=== PATIENT | female | born 1955 | race Caucasian/White ===

== ENCOUNTER 2017-10-19 08:26 | Inpatient (IN) | payer OTHER ==
[~2017-10-19] VITALS: Ht 170.2 cm; Wt 86.2 kg
--- OUTSIDE RECORDS SUMMARY | ~2017-10-19 | XMS | Clinical Summary ---
Demographics + + + | Address | [address] | | | [place] [address] | + + + | Home Phone | | + + + | Preferred Language | Unknown | + + + | Marital Status | | + + + | Jewish Affiliation | 1013 | + + + | Race | Unknown | + + + | Ethnic Group | Unknown | + + + Author + + + | Author | [facility] | | | and [place] | + + + | Organization | [facility] | | | and [place] | + + + | Address | Unknown | + + + | Phone | Unavailable | + + + Support + + +---------+ + | Name | Relationship | Address | Phone | + + +---------+ + | MARTHA THOMAS | ECON | Unknown | | + + +---------+ + Care Team Providers + +------+ + | Care Clipper Counters Name | Role | Phone | + +------+ + PP | Unavailable | + +------+ + Allergies Not on File Current Medications Not on file Active Problems Not on file Social History + +-------+ +--------+------+ | Tobacco Use | Types | Packs/Day | Years | Date | | | | | Used | | + +-------+ +--------+------+ | Never Assessed | | | | | + +-------+ +--------+------+ + + + | Sex Assigned at | Date Recorded | | | | + + + | Not on file | | + + + Plan of Treatment + + + + + | Health Maintenance | Due Date | Last Done | Comments | + + + + + | Vaccine: | | | | | Dtap/Tdap/Td (1 - | 3 | | | | Tdap) | | | | + + + + + | Cervical Cancer | | | | | Screening (Pap) | 4 | | | + + + + + | Vaccine: Zoster (1 | | | | | of 2) | 4 | | | + + + + + | Vaccine: Influenza | | | | | (#1) | 8 | | | + + + + + Results Not on filefrom Last 3 Months"
[~2017-10-19 08:26] MED LIST: ALDACTONE25 MG PO; ASPIRIN EC325 MG PO; B COMPLEX1 EACH PO; FISH OIL 1,0001 EAC3 PO; LEVOTHYROXINE100 MCG PO; MAXALT MLT10 MG PO; METFORMIN HCL1000 MG PO; MINOCYCLINE HC100 MG PO; NORCO 5-325 TA1 EACH PO; STRATTERA80 MG PO; VERAPAMIL ER P100 MG PO; VITAMIN D34000 UNIT PO; VITAMIN D5000 UNIT PO; WELLBUTRIN XL300 MG PO
[2017-10-20] MEDS ORDERED: PIROXICAM20 MG PO (14:26)
--- NOTE | 2017-10-20 14:52 | NUR ---
PATIENT HERE TODAY FOR PREADMISSION APPOINTMENT. SHE IS RESCHEDULED FOR A LEFT TOTAL KNEE ARTHROPLASTY ON 10/27/17. SHE WAS PREVIOUSLY SCHEDULED FOR THE SAME SURGERY AND HAD TO RESCHEDULE. SHE HAS ALREADY ATTENTDED THE PREOP PHYSICAL THERAPY CLASS. SHE HAS TWO STEPS INTO THE HOME AND NO STEPS INSIDE THE HOME. SHE HAS A CLAW FOOT BATH TUB IN HER HOME SO SHE WILL BE USING THE WALK IN SHOWER IN HER RENTAL HOUSE THAT IS NEXT TO HER HOME. SHE WILL OBTAIN A FRONT WHEELED WALKER AND SHOWER BENCH BEFORE SURGERY. HER ELI WILL BE HERE TO TRANSPORT HER HOME AND TO APPOINTMENTS. SHE WOULD LIKE PHYSICAL THERAPY SET UP WITH [facility]. THIS INFORMATION WILL BE SENT TO DR MATIAS OFFICE AND OK PLANNING FOR FURTHER FOLLOW UP.
--- NOTE | 2017-10-27 12:02 | NUR ---
10/27/17 1202 Araceli Brian 1145 PT ARRIVED IN PACU SLEEPY. BLOOD SUGAR ON ARRIVAL 119. UNABLE TO ASSESS SPINAL LEVEL AT THIS TIME R/T PT TO SLEEPY. 1200 OXYGEN DECREASED TO 6L VIA MASK WITH SATS 98%. SPINAL LEVEL AT L-1. PT ABLE TO WIGGLE TOES.
--- NOTE | 2017-10-27 12:40 | NUR ---
PATIENT ARRIVED TO FLOOR FROM PACU. PATIENT DROWSY, VITAL SIGNS STABLE. CONTINUOUS PULSE OXIMETERY IN PLACE. INCISION SITE IS CLEAN, DRY, AND INTACT. STRONG PEDAL PULSES BILATERALLY. LUNG SOUNDS CLEAR, PATIENT ON 2L NASAL CANNULA. SCD'S IN PLACE. IN ROOM WITH PATIENT, CALL LIGHT WITHIN REACH.
--- NOTE | 2017-10-27 13:40 | NUR ---
VITAL SIGNS REMAIN STABLE, CONTINUOUS PULSE OXIMETERY IN PLACE. PATIENT ON 2L NC. LACTATED RINGERS CURRENTLY INFUSING AT 125 MLS/HR. PATIENT DENIES PAIN. FRESH WATER PLACED AT THE BEDSIDE. CALL LIGHT WITHIN REACH.
--- NOTE | 2017-10-27 14:23 | NUR ---
PT IN M/S RM 115 FOLLOWING SURGERY. PT TRYING TO WAKE UP, ELI IN RM. ELI HAS SOME CONFUSION-PT HAD ASKED ME TO CHECK IN ON HIM. HE SEEMED AT EASE AND RELAXED. EXTENDED A BLESSING, WILL FOLLOW NEEDED
--- NOTE | 2017-10-27 14:33 | NUR ---
MET WITH PT BEFORE SURGERY. SHE IS RATHER ANXIOUS. GAVE WORDS OF ENCOURAGEMENT AND PT REQUESTED PRAYER. PT ASKED TO KEEP AN EYE ON HER -HE SEEMS TO GET CONFUSED EASILY. I LET HER KNOW WE WILL DO THAT FOR HER. WILL FOLLOW NEEDED
--- NOTE | 2017-10-27 14:40 | NUR ---
VITAL SIGNS STABLE. PATIENT ON CONTINUOUS PULSE OXIMETERY AND 2L NC. LR INFUSING AT 125 MLS/HR. PATIENT DENIES PAIN. PHYSICAL THERAPY IN ROOM WITH PATIENT. CALL LIGHT WITHIN REACH.
--- NOTE | 2017-10-27 16:14 | NUR ---
PATIENT IS STILL VERY DROWSY, BUT IS A/O X4. PATIENT ON 2L NC, CONTINUOUS PULSE OXIMETERY IN PLACE, CURRENTLY SATTING 93%. WHILE WORKING WITH PHYSICAL THERAPY, PATIENT HAD 300 ML EMESIS. COLD CLOTH ON FOREHEAD. SCD'S IN PLACE. SURGICAL INCISION IS CLEAN DRY AND INTACT. IN ROOM WITH PATIENT, CALL LIGHT WITHIN REACH. PATIENT DENIES PAIN.
--- NOTE | 2017-10-27 17:39 | NUR ---
PATIENT COMPLAINING OF INCREASED NAUSEA, HAD 300 MLS OF EMESIS. 4 MG ZOFRAN PRN ADMINISTERED. CALL LIGHT WITHIN REACH.
--- NOTE | 2017-10-27 17:47 | NUR ---
PATIENT ASKED FOR HELP TO GO BATHROOM. PATIENT SITING UP IN BED. PATIENT FEEL DIZZY. WASTE WATER OPERATOR ASKED FOR HELP. RN NOTIFIED. PATIENT THROW UP. PATIENT SITING UP IN BASE COMODE. PULL UP AND PAD PROVIDED. LINENS CHANGED. GOWN CHANGED. PATIENT BACK TO BED. VITALS AND I&O DONE. CALL LIGHT WITHIN REACH. NO MORE NEEDS AT THIS TIME.
--- NOTE | 2017-10-27 19:00 | NUR ---
PATEINT ARRIVED TO FLOOR AT 1240. VITAL SIGNS HAVE REMAINED STABLE. INCISION SITE IS COVERED, NO SIGNS OF SHADOWING OR DRAINAGE. PATIENT IS A/O X4, BUT REMAINS VERY DROWSY. PATIENT HAS HAD MULTIPLE EPISODES OF EMESIS, PRN ZOFRAN ADMINISTERED. PATIENT HAD DENIED PAIN SINCE ARRIVAL TO UNIT.
--- NOTE | 2017-10-27 20:06 | NUR ---
RECEIVED REPORT FROM DAY SHIFT RN. PATIENT IS HAVING A BOUT OF EMESIS. PATIENT GIVEN PRN NAUSEA MEDICATION PER ORDER. NO FURTHER NEEDS NOTED. CALL LIGHT IN REACH. AT THE BEDSIDE.
--- NOTE | 2017-10-27 21:30 | NUR ---
PATIENT ASSESMENT COMPLETED. PATIENT GIVEN JELLO. PATIENTS VITALS TAKEN AND RECORDED. PATIENTS EVENING MEDCIATIONS GIVEN PER ORDER. PATIENT DENIES ANY PAIN AT THIS TIME. PATIENTS DRESSING IS C/D/I, NO DRAINAGE NOTED. PATIENT TITRATED TO 1L VIA NC. PATIENT REMAINS ON A PULSE OX. PATIENT HAS ICE APPLIED TO LEFT KNEE. PATIENT DENIES ANY NAUSEA. PATIENT IS RESTING IN BED AND DENIES ANY FURTHER NEEDS. CALL LIGHT IN REACH.
--- NOTE | 2017-10-27 23:22 | NUR ---
PATIENT IS RESTING IN BED WITH EYES CLOSED. PULSE OX READINGS ARE WNL. PATIENTS CALL LIGHT IS WITHIN REACH.
--- NOTE | 2017-10-28 00:04 | NUR ---
PATIENT ASSISTED TO THE BSC A 1-2PA W/FWW. PATIENT DID NOT TOLERATE ACTIVITY. PATIENT BECAME DIZZY AND NAUSEAOUS. PATIENT WAS ABLE TO VOID. PATIENT IS BACK IN BED RESTING. SCDS IN PLACE. PATIENT GIVEN PRN NAUSEA MEDICATION. PATIENT REMAINS ON 1L VIA NC. PULSE OX IN PLACE. NO FURTHER NEEDS NOTED. CALL LIGHT IN REACH.
--- NOTE | 2017-10-28 01:20 | NUR ---
PATIENT ASSESMENT COMPLETED. PATIENTS VITALS TAKEN AND RECORDED. PATIENTS SCHEDULED MEDICATIONS GIVEN PER ORDER. PATIENT DENIES ANY PAIN OR NAUSEA. PATIENT REMAINS ON 1L VIA NC. PULSE OX IN PLACE AND READINGS ARE WNL. DRESSING ARE WNL. PATIENT DENIES ANY FURTHER NEEDS. CALL LIGHT IN REACH.
--- NOTE | 2017-10-28 03:19 | NUR ---
PATIENT IS RESTING IN BED WITH EYES CLSOED. PULSE OX READINGS ARE WNL. PATIENT REMAINS ON 1L VIA NC. CALL LIGHT IN REACH.
--- NOTE | 2017-10-28 04:46 | NUR ---
PATIENT RESTED WELL THROUGHOUT THE SHIFT. PATIENT REMAINS ON A CLEAR DIET AND IT CAN DE ADVANCED TOELRATED TO ADA. PATIENT IS ON 1L VIA NC. PULSE OX IN PLACE. PATIENT HAS AND ORDER TO WORK WITH PT. PATIENT HAS SCDS IN PLACE. PATIENTS DRESSIN IVONE LEFT KNEE IS C/D/I, NO DRAINAGE NOTED. PATIENT RECEIVED X2 PRN MEDICATIONS FOR NAUSEA. PATIENT DENIED ANY PAIN. PATIENT REMAINED DROWWSY BUT WAS EASY TO AWAKEN. PATIENT IS AAOX3 AND USES HER CALL LIGHT APPROPRIATELY. IV INFUSING. ICE Q 1-2 HRS FOR 20 MINS.
--- NOTE | 2017-10-28 05:27 | NUR ---
PATIENTS VITALS TAKEN AND RECORDED. PATIENT ASSISTED TO THE RESTROOM A 1PA W/FWW. PATIENT TOELRATED AMBULATION WELL. PATIENT DENIED BEING DIZZY OR NAUSEOUS WITH AMBULATION. PATIENT WAS ABLE TO VOID. PATIENT IS BACK IN BED RESTING. ICE IN PLACE. SCDS IN PLACE. DRESSSING IS C/D/I, NO DRAINAGE NOTED. PATIENT GIVEN JELLO. PATIENT RATES PAIN AT A 5/10. PRN PAIN MEDICATION GIVEN PER ORDER. PATIENT DENIES ANY FURTHER NEEDS. CALL LIGHT IN REACH.
--- NOTE | 2017-10-28 07:18 | NUR ---
SHIFT REPORT RECEIVED FROM SOUND CUTTER RN AT BEDSIDE. PATEINT AWAKE, LAYING IN BED. RESPIRATIONS EVEN AND UNLABORED. LR INFUSING AT 125 MLS/HR, IV SITE WNL. INCISION SITE COVERED, NO DRAINAGE NOTED. PATIENT ON CONTINOUS PULSE OXIMETERY. PATIENT DENIES PAIN, CALL LIGHT WITHIN REACH.
--- NOTE | 2017-10-28 08:20 | NUR ---
MORNING ASSESSMENT AND ROUTINE MEDICATIONS ADMINISTERED. PATEINT ON ROOM AIR, CONTINUOUS PULSE OXIMETERY IN PLACE. INCISION SITE IS COVERED, NO DRAINAGE NOTED. MORNING GLUCOSE RRESULT OF 135, NO INSULIN ADMINISTERD PER SLIDING SCALE ORDERS. CALL LIGHT WITHIN REACH.
--- NOTE | 2017-10-28 08:27 | NUR ---
THIS WIG SALES CONSULTANT ASSISTED PATIENT UP INTO BEDSIDE RECLINER. PATIENT DRESSED IN PANTS FROM HOME. THIS WIG SALES CONSULTANT ASSISTED PATIENT TO PUT HAIR IN BUN. PATIENT STATED SHE ALREADY WASHED HANDS AND FACE. LINENS CHANGED. CALL LIGHT IN REACH. NO OTHER NEEDS AT THIS TIME.
--- NOTE | 2017-10-28 08:41 | OR ---
[facility] [address], [place] [address] Signed DATE OF OPERATION: 10/27/2017 SURGEON: Gucci Arnold MD PREOPERATIVE DIAGNOSES: 1. End-stage osteoarthritis, left knee. 2. Ochronosis. PROCEDURE: Left total knee arthroplasty. ANESTHESIA: Spinal with sedation. SPECIMENS AND COMPLICATIONS: There were no specimens or complications. TOURNIQUET TIME: Was about 80 minutes. IMPLANTS: Attune total knee size 6 narrow PS femur, a size 5 tibial tray, with a 7 mm size 6 PS poly insert and a 35 mm all-poly patellar button. WHAT WAS DONE: The patient was taken to the operating room. After anesthesia was induced, the patient sedated, left lower extremity was positioned, prepped and draped in the routine sterile fashion. The leg was exsanguinated with an Esmarch bandage. Pneumatic tourniquet was inflated to 300 mmHg of pressure on the upper thigh. The knee was approached through a straight anterior approach. Skin was divided sharply. We then created a small medial flap and did an anteromedial arthrotomy. The patella was the ER everted. We measured the patella which was only 20 mm. We removed about 9 mm off the posterior aspect of patella placed 35 mm lollipop on the back of the patella and drilled holes for a 35 mm patellar button. We then snap-fit the trial and found that we had reconstituted patellar height of about 23 mm. We then slid the patella into the lateral recess. Using the [employer] navigation system, we then digitized the end of the femur per protocol and resected the distal femur in neutral varus valgus about 3 degrees of flexion removing about 11 mm off the most worn side. The femoral wafers were then removed. We then transitioned the Rajan navigation system to the proximal tibia and again following the protocol digitized the proximal tibia. Proximal tibia was then resected Electronically Signed By: GUCCI ARNOLD MD 10/28/17 0841 PATIENT NAME: LAZARO LANZA OPERATIVE REPORT DATE OF : 51 REPORT #: [id number] PHYSICIAN: GUCCI ARNOLD MD PCP: OUMAR MOCTEZUMA DO REPORT IS CONFIDENTIAL AND NOT TO BE RELEASED WITHOUT AUTHORIZATION [facility] [address], [place] [address] Signed in neutral varus valgus, 3 degrees of posterior slope per the [facility] surgical protocol and removing about 5 mm off the medial side. The tibial wafer remnants of the medial and lateral meniscus, ACL and PCL were all removed. The femoral sizing block was placed on the distal femur and the femur sized to a size 6. The four-in-one cutting block was placed on the distal femur in 3 degrees of external rotation and pinned into place. Anterior posterior and chamfer cuts were then made. The bony fragments were removed. The notch cutting block was placed and the notch was cut out. We put the femoral trial on the distal femur and drilled the lug holes. We then placed a size 5 tibial tray, corresponding to the size of the tibial wafer removed on the proximal tibia with a 6 mm poly. We had excellent varus valgus balance in flexion, extension and mid range. We achieved full extension without any difficulty. We marked the rotational alignment of the components then removed all the trials. The tibia was prepared with a standard reamer and broach. The knee was copiously irrigated and meticulously dried. Using antibiotic cement, we then cemented the permanent components into place and used a 6 mm poly insert trial. Knee was held in full extension until the cement cured. Once the cement had cured, the poly trial was removed. We removed marginal . The knee was again copiously irrigated. We found we could actually place a 7 mm poly still achieve full extension with excellent varus and valgus balance and flexion extension in mid range. The knee was again gently irrigated the final poly was snapped into place and routine wound closure was accomplished. A sterile dressing was applied. The patient was awakened and taken to the recovery room where she arrived in stable condition. Gucci Arnold MD WFB/MODL /[id number] Copies: ~ Electronically Signed By: GUCCI ARNOLD MD 10/28/17 0841 PATIENT NAME: LAZARO LANZA OPERATIVE REPORT DATE OF : 51 REPORT #: [id number] PHYSICIAN: GUCCI ARNOLD MD PCP: OUMAR MOCTEZUMA DO REPORT IS CONFIDENTIAL AND NOT TO BE RELEASED WITHOUT AUTHORIZATION
--- NOTE | 2017-10-28 09:54 | NUR ---
PATIENT UNABLE TO VOID AT THIS TIME, THIS MOVING PICTURE OPERATOR WILL RETURN IN APPROXIMATELY 30 MINUTES TO ASSIST PATIENT WITH REATTEMPT. PATIENT ENCOURAGED TO DRINK MORE FLUIDS.
--- NOTE | 2017-10-28 09:56 | NUR ---
PATIENT SITTING UP IN BEDSIDE RECLINER. PATIENT STATES SHE IS COMFORTABLE BUT HER BACK ITCHES. THIS LIABILITY CLAIMS ADJUSTER OFFERED TO ASSIST PATIENT WITH BED BATH, PATIENT REFUSED AT THIS TIME. FAMILY IN ROOM. PATIENT INQUIRING ABOUT WHEN THE DOCTOR WILL BE IN. PATIENT CALL LIGHT IN REACH. NO OTHER NEEDS AT THIS TIME.
--- NOTE | 2017-10-28 10:44 | NUR ---
MED REC COMPLETE
--- NOTE | 2017-10-28 10:45 | NUR ---
PATIENT AMBULATING IN HALLWAY WITH PHYSICAL THERAPY.
--- NOTE | 2017-10-28 11:12 | NUR ---
LUNCH TIME BLOOD SUGAR RESULT OF 124, NO INSULIN ADMINISTERED PER SLIDING SCALE ORDER. PATEINT REPORTING FELING "ITCHY". SLIGHT REDNESS NOTED ON PATIENT LEFT HIP AND SLOWER BACK. WHEN OFFERED BENADRYL, PATIENT STATED, "IT MAKES ME FEEL SNOWED". PATEINT DENIES SOB OR DIFFICULTY BREATHING. PATIENT INSTRUCTED TO USE CALL LIGHT IF ITCHING WORSENS. WILL CONTINUE TO MONITOR. CALL LIGHT WITHIN REACH.
[2017-10-28] MEDS ORDERED: XARELTO10 MG PO (13:01)
[2017-10-28] MEDS ORDERED: ACETAMINOPHEN650 M1 PO ×2 (13:11→13:57)
[2017-10-28] MEDS ORDERED: OXYCODONE HCL5 MG PO (13:19)
[2017-10-28] MEDS ORDERED: ZOFRAN ODT4 MG SL ×2 (13:21→13:58)
--- NOTE | 2017-10-28 13:27 | NUR ---
SCHEDULED TYLENOL ADMINISTERED. PATIENT RATES PAIN 5/10 IN THE LEFT KNEE. DISCUSSED WITH PATIENT THE IMPORTANCE TO USE CALL LIGHT AND WAIT FOR ASSISTANCE BEFORE RETURNING FROM BATHROOM TO BED. PATIENT VERBALIZED UNDERSTANDING. CALL LIGHT WITHIN REACH.
--- NOTE | 2017-10-28 14:11 | NUR ---
PT SITTING IN CHAIR, DRESSED, AND HOPING TO BE DC'D TODAY. DEPENDING ON P.T. LATER HER ELI WILL COME TO TAKE HER HOME. SHE SLEPT WELL, EXTENDED A BLESSING-WILL FOLLOW NEEDED
--- NOTE | 2017-10-28 14:55 | NUR ---
PATIENT SITTING UP IN BEDSIDE RECLINER, CALL LIGHT IN REACH. NO OTHER NEEDS AT THIS TIME.
--- NOTE | 2017-10-28 15:18 | NUR ---
PATIENT PREPARING FOR DISCHARGE, COMPLAINING OF INCREASING PAIN. 5 MG OXYCODONE ADMINISTERED. CALL LIGHT WITHIN REACH.
--- NOTE | 2017-10-28 15:30 | NUR ---
MD ORDER TO REMOVE BUBBA BANDAGE AND MEPILEX PRIOR TO DISCHARGING PATIENT. ONCE DONE, MINIMAL OOZING FROM INCISION SITE WAS NOTED. DR ARNOLD NOTIFIED. VERBAL INSTRUCTIONS OVER THE PHONE RECEIVED FROM DR ARNOLD. INSTRUCTIONS ARE TO PLACE NEW MEPILEX AND REWRAP WITH BUBBA WRAP, THEN CONTINUE WITH PATIENT DISCHARGE. INCISION SITE IS WELL APPROXIMATED. NEW VERBAL INSTRUCTIONS FROM DR ARNOLD COMPLETED.
--- NOTE | 2017-10-29 16:04 | NUR ---
FAXED CHART NOTES TO [facility] OP PT INCLUDING FACE SHEET, ORDER, H AND P, OP NOTE, CONSULT, PROG NOTES, PT EVAL AND NOTES. RECIEVED FAX CONFIRMATION OF THIS.
== END 2017-10-28 15:45 | disposition home or self-care (01) | DRG 470 ==
LOC: DSVR 10-27 06:55 → MS 10-27 08:45
PROVIDERS: ADMIT Orthopaedic Surgery
PROC: 0SRD0J9 Replacement of Left Knee Joint with Synthetic Substitute, Cemented, Open Approach (ICD-10-PCS; principal; 2017-10-27 08:45)
DX: M17.12 Unilateral primary osteoarthritis, left knee (principal); E70.29 Other disorders of tyrosine metabolism; I10 Essential (primary) hypertension; E11.9 Type 2 diabetes mellitus without complications; G43.909 Migraine, unspecified, not intractable, without status migrainosus; E03.9 Hypothyroidism, unspecified; L71.9 Rosacea, unspecified
CPT/HCPCS: 01402; 36415; 73560; 80048; 85025; 94762; 97110; 97116; 97161; C1713; C1776; G8978; G8979; J0690; J1100; J1885; J2250; J2274; J2405; J2704; J2765; J3010; J7120

== ENCOUNTER 2022-01-05 11:14 | Emergency (ER) | payer MEDICARE, OTHER ==
[~2022-01-05] VITALS: Ht 170.2 cm; Wt 82.1 kg
[~2022-01-05 11:14] MED LIST changes: +ACETAMINOPHEN650 M1 PO; +OXYCODONE HCL5 MG PO; +PIROXICAM20 MG PO; +XARELTO10 MG PO; +ZOFRAN ODT4 MG SL
[2022-01-05] MEDS ORDERED: HYDROCODON-ACE1 EA10 PO (14:58)
[2022-01-05] MEDS ORDERED: PREDNISONE20 MG PO (14:58)
== END 2022-01-05 15:08 | disposition home or self-care (01) ==
LOC: ED 11:14
DX: M25.561 Pain in right knee (principal); Z79.899 Other long term (current) drug therapy; Z79.84 Long term (current) use of oral hypoglycemic drugs; Z79.82 Long term (current) use of aspirin
CPT/HCPCS: 73560; 99283-25